=== PATIENT | male | born 1965 | race Caucasian/White ===

== ENCOUNTER → 2017-02-04 | Outpatient (CLI) | payer OTHER ==
[2017-02-04 16:05] LABS: TSH w REFLEX 9.07 uIU/mL (0.465-4.680)
== END ==
LOC: COL.LAB 12:23
PROVIDERS: Family Medicine
DX: R79.89 Other specified abnormal findings of blood chemistry (principal)

== ENCOUNTER → 2017-02-28 | Outpatient (CLI) | payer OTHER | LOC: COL.RAD 02-27 11:15 | DX: E07.89 Other specified disorders of thyroid (principal) ==

== ENCOUNTER → 2017-03-25 | Outpatient (CLI) | payer OTHER | LOC: COL.LAB 09:58 | DX: E03.9 Hypothyroidism, unspecified (principal) ==

== ENCOUNTER → 2017-08-01 | Outpatient (CLI) | payer OTHER ==
[2017-08-01 16:47] LABS: TSH w REFLEX 5.48 uIU/mL (0.465-4.680)
== END ==
LOC: COL.LAB 11:04
PROVIDERS: Family Medicine
DX: R00.2 Palpitations (principal)

== ENCOUNTER → 2017-09-15 | Outpatient (CLI) | payer OTHER ==
[2017-09-15 16:43] LABS: THYROID STIMULATING HORMONE 1.29 uIU/mL (0.465-4.680)
== END ==
LOC: COL.LAB 14:34
PROVIDERS: Family Medicine
DX: E03.9 Hypothyroidism, unspecified (principal)

== ENCOUNTER → 2018-09-25 | Outpatient (CLI) | payer OTHER | LOC: ZCOL.LAB 17:05 | DX: E03.9 Hypothyroidism, unspecified (principal) ==

== ENCOUNTER → 2019-01-29 | Outpatient (CLI) | payer OTHER | LOC: ZCOL.LAB 16:43 | DX: E03.9 Hypothyroidism, unspecified (principal) ==

== ENCOUNTER → 2019-03-18 | Outpatient (CLI) | payer OTHER | LOC: ZCOL.LAB 16:25 | DX: E03.9 Hypothyroidism, unspecified (principal) ==

== ENCOUNTER → 2023-01-20 | Outpatient (CLI) | payer OTHER | LOC: COL.RAD 09:30 → MC.RAD 09:30 | DX: R59.0 Localized enlarged lymph nodes (principal) ==